=== PATIENT | female | born 1975 | race African-American/Black ===

== ENCOUNTER 2016-10-10 10:53 | Emergency (ER) | payer OTHER ==
[2016-10-10 10:58] VITALS: BMI 44.1
--- NOTE | 2016-10-10 11:26 | PDOC ---
History of Present Illness - General History Source: Patient Exam Limitations: No Limitations - History of Present Illness Initial Comments: 10/10/16 11:30 The patient is a 41-year-old woman, accompanied by spouse, with a significant medical history of migraine headaches and gastroesophageal reflux disease and recent hysterectomy who presents to the emergency department via for further evaluation of dizziness since yesterday. No head trauma. Patient states that her symptoms started ever since she had her hysterectomy (June 2016). She states that she has been feeling fatigue, and lately she has been more weak than usual, needing to take naps, but she does not, as she cares for her 4 children at home. She states that for the past couple of days, she started to experience her typical epigastric abdominal pains, for which she attributes to her history of GERD. However, yesterday, her symptoms worsened as she reports associated symptoms of cold sweats, dry mouth, persistent nausea and dizziness "described as room spinning", which is atypical of her GERD symptoms. She also admits, she has been on Motrin for since her hysterectomy. She denies fever, diaphoresis, generalized weakness. She denies chest pain, shortness of breath, cough She denies vomiting, diarrhea, dysuria, hematuria, urinary frequency and urgency , flank pain, vaginal discharge/vaginal bleeding Allergies: Codeine. Penicillin. Past Surgical History: Hysterectomy. Knee surgery. Social History: Never smoked. No ETOH and recreational drug use. 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 [phone] <Aysha Acevedo - Last Filed: 10/10/16 15:20> <Eliud Mckinley - Last Filed: 10/10/16 16:31> - General Chief Complaint: Pain Stated Complaint: WEAKNESS, DIZZINESS, ABD PAIN Time Seen by Provider: 10/10/16 11:02 Past History <Aysha Acevedo - Last Filed: 10/10/16 15:20> - Past Medical History Anemia: No Asthma: No Cancer: No Cardiac Disorders: No CVA: No COPD: No CHF: No Dementia: No Diabetes: No GI Disorders: Yes (EPIGASTRIC PAIN) Disorders: No HTN: No Hypercholesterolemia: No Liver Disease: No Seizures: No Thyroid Disease: No - Surgical History Abdominal Surgery: Yes Appendectomy: No Cardiac Surgery: No Cholecystectomy: No Lung Surgery: No Neurologic Surgery: No Orthopedic Surgery: No - Reproductive History (#): 6 Para: 3 Cervical CA: No Dysfunctional Uterine Bleeding: No Ectopic : No Endometrial CA: No Polycystic Ovaries: No Therapeutic (s) & number: Yes (1) Tubal Ligation: No Spontaneous : 1 - Psycho/Social/Smoking Cessation Hx Anxiety: No Suicidal Ideation: No Smoking History: Never smoked Have you smoked in the past 12 months: No Information on smoking cessation initiated: No Hx Alcohol Use: No Drug/Substance Use Hx: No Substance Use Type: None <Eliud Mckinley - Last Filed: 10/10/16 16:31> - Past Medical History Allergies/Adverse Reactions: Allergies Allergy/AdvReac Type Severity Reaction Status Date / Time codeine Allergy Verified 10/10/16 10:56 Penicillins Allergy Verified 10/10/16 10:56 Home Medications: Ambulatory Orders NK [No Known Home Medication] 10/10/16 Review of Systems - Review of Systems Constitutional: Yes: Chills. No: Fever HEENTM: Yes: Other (dry mouth). No: Recent change in vision, Double Vision Respiratory: No: Shortness of Breath Cardiac (ROS): Yes: Lightheadedness. No: Chest Pain, Edema, Syncope ABD/GI: Yes: Diarrhea, Nausea. No: Vomiting : No: Burning, Dysuria, Frequency Integumentary: No: Rash Neurological: Yes: Headache. No: Weakness All Other Systems: Reviewed and Negative <Eliud Mckinley - Last Filed: 10/10/16 16:31> *Physical Exam - Vital Signs Last Vital Signs Temp Pulse Resp BP Pulse Ox 97.5 F L 77 18 149/92 100 10/10/16 10:56 10/10/16 10:56 10/10/16 10:56 10/10/16 10:56 10/10/16 10:56 - Physical Exam Comments: 10/10/16 11:42 GENERAL: The patient is awake, alert, and fully oriented, in no acute distress. HEAD: Normal with no signs of trauma. EYES: Pupils equal, round and reactive to light, extraocular movements intact, sclera anicteric, conjunctiva clear with no pallor. ENT: Ears normal, nares patent, oropharynx clear without exudates. Dry mucous membranes. NECK: Normal range of motion, supple without lymphadenopathy, JVD, or masses. LUNGS: Breath sounds equal, clear to auscultation bilaterally. No wheeze/ crackles. HEART: Regular rate and rhythm, normal S1 and S2 without murmur or rub. ABDOMEN: Soft/there is some tenderness with occasional guarding in the epigastric and right upper quadrant without rebound/nondistended. BS wnl. No palpable masses. No hepatosplenomegaly. EXTREMITIES: Normal range of motion, no edema. No clubbing or cyanosis. No cords, erythema, or tenderness. NEUROLOGICAL: Cranial nerves II through XII grossly intact. Normal speech. PSYCH: Normal mood, normal affect. SKIN: Warm, Dry, normal turgor, no rashes or lesions noted. <Aysha Acevedo - Last Filed: 10/10/16 15:20> - Vital Signs Last Vital Signs Temp Pulse Resp BP Pulse Ox 97.5 F L 77 18 149/92 100 10/10/16 10:56 10/10/16 10:56 10/10/16 10:56 10/10/16 10:56 10/10/16 10:56 <Eliud Mckinley - Last Filed: 10/10/16 16:31> Heart Score/ECG Review #1 ECG reviewed & interpreted by me at: 12:50 General ECG Interpretation: Sinus Rhythm, Normal Rate (73), Normal Intervals, No acute ischemic changes (1/2 mm MAINOR I/AVL c/w repolarization, no reciprocal changes) <Eliud Mckinley - Last Filed: 10/10/16 16:31> ED Treatment Course - LABORATORY CBC & Chemistry Diagram: 10/10/16 11:45 10/10/16 11:45 - RADIOLOGY Radiograph Interpretation: 10/10/16 13:12 EXAM: US/ABDOMEN US -LIMITED IMPRESSION: Right upper abdomen ultrasound. The liver is enlarged measuring 20.4 cm in sagittal length with a slightly dense echotexture. A focal low- attenuation density is noted in the left hepatic lobe measuring 1.5 cm seen on the transverse images only there is also a small hypoechoic density in the right hepatic lobe measuring 1.5 cm in maximum dimension. Gallbladder is adequately distended without intraluminal stones or thickening of its wall. No intra or extrahepatic bile duct dilatation is seen. The right kidney measures 9.8 cm sagittal length and appears unremarkable. Visualized portion of the pancreas appears unremarkable Visualized portion of the proximal abdominal aorta and inferior vena cava appear unremarkable. Normal flow in the main portal vein EXAM: US/TRANSVAGINAL ULTRASOUND US IMPRESSION: Status post hysterectomy. History of adenomyosis. Abdominal pain. Pelvis ultrasound, transvaginal. Patient is status post cervix sparing hysterectomy. Both ovaries were not visualized. No adnexal mass or fluid collection is seen. EXAM: RAD/CHEST PA LAT IMPRESSION: Comparison study February 07, 2011. Unremarkable contour of the cardiomediastinal silhouette. No evidence of pulmonary infiltrates, atelectasis. No pleural effusion or pneumothorax is seen. No evidence of bulky hilar adenopathy. Intact visualized osseous structures. <Aysha Acevedo - Last Filed: 10/10/16 15:20> - LABORATORY CBC & Chemistry Diagram: 10/10/16 11:45 10/10/16 11:45 <Eliud Mckinley - Last Filed: 10/10/16 16:31> Medical Decision Making - Medical Decision Making 10/10/16 12:21 A portion of this note was documented by scribe services under my direction. I have reviewed the details of the note, within reason, and agree with the documentation with the following case summary and management plan written by me. 41-year-old female with no significant past medical history other than hysterectomy in June for fibroids now presents for generalized malaise/ fatigue with nausea, intermittent abdominal pain. Chills but no fever, dry mouth but no polyuria, no cough or chest pain. Vitals as noted and within normal limits. Dry mucosa, right-sided abdominal discomfort to palpation as noted 41-year-old female with very general complaints of generalized fatigue and nausea and intermittent abdominal pain. ? new onset diabetes, ? anemia, r/o intra-abdominal process (gastritis, biliary colic, post-op collection?). labs, ua ekg, cxr RUQ and pelvic sono ivf, anti-emetic reassess 10/10/16 13:23 Labs are within normal limits, including hemoglobin, white count, creatinine, glucose, TSH. Right upper quadrant ultrasound shows hepatomegaly but no biliary disease. Transvaginal ultrasound pending. EKG is nonischemic. 10/10/16 16:26 Ultrasound normal. CTAP performed to r/o colitis, and is also normal. Ultimate diagnosis still unclear, but emergent workup within normal limits. Pt feels reassured, can f/u with her PMD for further evaluation. Understands return criteria. <Eliud Mckinlye - Last Filed: 10/10/16 16:31> *DC/Admit/Observation/Transfer - Attestations Scribe Attestion: 10/10/16 11:43 Documentation prepared by Aysha Acevedo, acting as medical claims assistant for Eliud Mckinley MD. <Aysha Acevedo - Last Filed: 10/10/16 15:20> <Eliud Mckinley - Last Filed: 10/10/16 16:31> Diagnosis at time of Disposition: Malaise and fatigue, Generalized abdominal pain - Discharge Dispostion Disposition: HOME Condition at time of disposition: Stable - Referrals Referrals: Miesha Bailey MD [Primary Care Provider] - - Patient Instructions Printed Discharge Instructions: DI for Fatigue Additional Instructions: Acticity as tolerated. Stay hydrated. Blood tests, a urine test, ultrasounds and a CT of the abdomen/pelvis performed today shows no acute abnormalities. Further testing (inflammatory markers, ? Lyme testing) may be necessary with your primary doctor to further evaluate the cause of your symptoms. Continue your medications as previously prescribed by your physician. Multivitamins are available over the counter. You must follow up with your primary physician as soon as possible regarding today's emergency department visit. Return to the emergency department for any new or concerning symptoms, especially loss of consciousness, fever/chills, chest pain or shortness of breath, persistent or severe abdominal pain.
[2016-10-10] MEDS ORDERED: SODIUM CHLORIDE 1,000 ML IV ONE (11:39)
[2016-10-10] MEDS ORDERED: FAMOTIDINE 20 MG/50 ML IVPB 50 ML IVPB ONE ×2 (11:39→11:54)
[2016-10-10] MEDS ORDERED: METOCLOPRAMIDE HCL INJECTION 10 MG/2 ML VIAL IVPB ONE (11:39)
[2016-10-10] MEDS ORDERED: METOCLOPRAMIDE HCL INJECTION 10 MG/2 ML VIAL ONE (11:54)
[2016-10-10 12:00] LABS: URINE APPEARANCE CLEAR; URINE BILIRUBIN NEGATIVE (NEGATIVE); URINE BLOOD NEGATIVE (NEGATIVE); URINE COLOR STRAW; URINE GLUCOSE (UA) NEGATIVE (NEGATIVE); URINE KETONE NEGATIVE (NEGATIVE); URINE LEUK ESTERASE NEGATIVE (NEGATIVE); URINE NITRITE NEGATIVE (NEGATIVE); URINE PROTEIN NEGATIVE (NEGATIVE); URINE UROBILINOGEN NEGATIVE E.U./dl (0.2-1.0)
[2016-10-10 12:04] LABS: EOSINOPHIL 3.6 % (0-4.5); MCH 26.9 pg (25.7-33.7); MCHC 32.5 g/dl (32.0-36.0); MEAN CELL VOLUME 82.7 fl (80-96); MEAN PLT VOLUME 9.4 fl (7.5-11.1); NEUTROPHILS 45.3 % (42.8-82.8); PLATELET COUNT 221 K/MM3 (134-434)
[2016-10-10 12:34] LABS: ALBUMIN 3.7 g/dl (3.4-5.0); ALK PHOS 70 U/L (45-117); ANION GAP 8 (8-16); CALCIUM 8.7 mg/dL (8.5-10.1); CO2 30 mmol/L (21-32); CREATININE 0.6 mg/dL (0.55-1.02); GLUCOSE,RANDOM 93 mg/dL (74-106); SGOT/AST 22 U/L (15-37); SGPT/ALT 29 U/L (12-78); TOT PROT 7.1 g/dl (6.4-8.2)
[2016-10-10 13:39] VITALS: PULSE 68
--- NOTE | 2016-10-10 16:13 | EKG ---
Test Reason : Blood Pressure : / mmHG Vent. Rate : 073 BPM Atrial Rate : 073 BPM P-R Int : 150 ms QRS Dur : 084 ms QT Int : 396 ms P-R-T Axes : 036 019 003 degrees QTc Int : 436 ms NORMAL SINUS RHYTHM WITH SINUS ARRHYTHMIA NORMAL ECG WHEN COMPARED WITH ECG OF 07-FEB-2011 13:23, NO SIGNIFICANT CHANGE WAS FOUND Confirmed by JUN SOLORZANO MD ([id number]) on 10/10/2016 4:12:49 PM Referred By: Confirmed By:JUN SOLORZANO MD
[2016-10-10 17:12] VITALS: BP 119/75; TEMP 98
== END 2016-10-10 16:46 | disposition home or self-care (01) ==
LOC: JER 10:53
PROC: 3E033GC Introduction of Other Therapeutic Substance into Peripheral Vein, Percutaneous Approach (ICD-10-PCS; principal; 2016-10-10)
DX: R10.84 Generalized abdominal pain (principal); R53.81 Other malaise
CPT/HCPCS: 36415; 71020-TC; 74177-TC; 76705-TC; 76830-TC; 80053; 81003; 83690; 84443; 85025; 93005; 93010; 96365; 96375; 99284-25

== ENCOUNTER 2018-01-26 18:42 | Emergency (ER) | payer OTHER ==
--- NOTE | 2018-01-26 18:47 | PDOC ---
Rapid Medical Evaluation Time Seen by Provider: 01/26/18 18:43 Medical Evaluation: Allergies Allergy/AdvReac Type Severity Reaction Status Date / Time codeine Allergy Verified 10/10/16 10:56 Penicillins Allergy Verified 10/10/16 10:56 I have performed a brief in-person evaluation of this patient. The patient presents with a chief complaint of: right buttock pain radiating into right leg x few days, left side since yesterday. Patient has had hip xrays which showed arthritis Pertinent physical exam findings: pain with ambulation. pain with palpation of b /l buttocks I have ordered the following: nothing; patient had a hysterectomy The patient will proceed to the ED for further evaluation. Discharge Disposition - Diagnosis Sciatic pain - Referrals - Patient Instructions - Post Discharge Activity
[2018-01-26 18:51] VITALS: BP 140/100; PULSE 85; TEMP 98.5; BMI 47.2
[2018-01-26] MEDS ORDERED: RANITIDINE HCL 150 MG TABLET (FP) PO ONE (19:10)
[2018-01-26] MEDS ORDERED: KETOROLAC TROMETHAMINE 60 MG/2 ML VIAL IM ONE (19:10)
[2018-01-26] MEDS ORDERED: KETOROLAC TROMETHAMINE 60 MG/2 ML VIAL ONE (19:11)
[2018-01-26] MEDS ORDERED: RANITIDINE HCL 150 MG TABLET (FP) ONE (19:11)
--- NOTE | 2018-01-26 19:14 | PDOC ---
History of Present Illness - General Chief Complaint: Pain Stated Complaint: PAIN Time Seen by Provider: 01/26/18 18:43 - History of Present Illness Initial Comments: 42-year-old female without any pre-existing medical comorbidities presents for evaluation of lumbar spine pain with bilateral leg radiculopathy. Symptoms of been going on for about 3 months now recently exacerbated without any precipitating traumatic event over the last 3 days. She describes her pain as achy exacerbated with activity relieved with rest and with radiation down the posterior lateral aspect of both legs. No loss of bowel or bladder function. 01/26/18 19:11 Past History - Past Medical History Allergies/Adverse Reactions: Allergies Allergy/AdvReac Type Severity Reaction Status Date / Time codeine Allergy Verified 01/26/18 18:43 Penicillins Allergy Verified 01/26/18 18:43 Home Medications: Ambulatory Orders Cyclobenzaprine HCl [Flexeril 10 mg] 10 mg PO HS PRN #10 tablet 01/26/18 Methylprednisolone [Medrol Dose Bjorn] 4 mg PO ASDIR #21 tablet 01/26/18 Anemia: No Asthma: No Cancer: No Cardiac Disorders: No CVA: No COPD: No CHF: No DVT: No Dementia: No Diabetes: No GI Disorders: Yes (gerd) Disorders: No HTN: No Hypercholesterolemia: No Liver Disease: No Seizures: No Thyroid Disease: No - Surgical History Abdominal Surgery: Yes Appendectomy: No Cardiac Surgery: No Cholecystectomy: No Lung Surgery: No Neurologic Surgery: No Orthopedic Surgery: No - Reproductive History (#): 6 Para: 3 Cervical CA: No Dysfunctional Uterine Bleeding: No Ectopic : No Endometrial CA: No Polycystic Ovaries: No Therapeutic (s) & number: Yes (1) Tubal Ligation: No Spontaneous : 1 - Suicide/Smoking/Psychosocial Hx Smoking History: Never smoked Have you smoked in the past 12 months: No Information on smoking cessation initiated: No Hx Alcohol Use: No Drug/Substance Use Hx: No Substance Use Type: None Review of Systems - Review of Systems Musculoskeletal: Yes: Back Pain All Other Systems: Reviewed and Negative *Physical Exam - Vital Signs Last Vital Signs Temp Pulse Resp BP Pulse Ox 98.5 F 85 18 140/100 100 01/26/18 18:44 01/26/18 18:44 01/26/18 18:44 01/26/18 18:44 01/26/18 18:44 - Physical Exam Comments: Lumbar spine shows decreased range of motion she has 5 out of 5 strength in bilateral lower extremities. Including EHL plantar flexion dorsiflexion knee extension and hip flexion. She has no clonus. She has positive straight leg raise test bilaterally producing contralateral radicular symptoms. No gross sensorimotor deficits. She neurovascular intact. 01/26/18 19:12 Medical Decision Making - Medical Decision Making Lumbar radiculopathy. I'll treated with a Medrol Dosepak and a muscle relaxer. While in the ER tonight I will give her Toradol and an H2 katie. Have her follow up with spine surgery. 01/26/18 19:13 *DC/Admit/Observation/Transfer Diagnosis at time of Disposition: Sciatic pain - Discharge Dispostion Disposition: HOME Condition at time of disposition: Stable Decision to Admit order: No - Prescriptions Prescriptions: Cyclobenzaprine HCl [Flexeril 10 mg] 10 mg PO HS PRN #10 tablet PRN Reason: Muscle Spasms Methylprednisolone [Medrol Dose Bjorn] 4 mg PO ASDIR #21 tablet - Referrals Referrals: Kobe Farrell MD [Staff Physician] - - Patient Instructions Additional Instructions: Follow-up with spine surgery as advised. Return to the emergency room if symptoms worsen or go unresolved prior to follow-up. Given you a steroid pack please do not take any anti-inflammatories on top of that such as Advil Motrin or Aleve. I've also given U a muscle relaxer which will make tired. It's one pill before bedtime. - Post Discharge Activity
== END 2018-01-26 19:19 | disposition home or self-care (01) ==
LOC: JERFT 18:42
PROC: 3E0233Z Introduction of Anti-inflammatory into Muscle, Percutaneous Approach (ICD-10-PCS; principal; 2018-01-26)
DX: M54.41 Lumbago with sciatica, right side (principal); M54.42 Lumbago with sciatica, left side
CPT/HCPCS: 96372; 99281-25

== ENCOUNTER 2018-07-18 16:25 | Emergency (ER) | payer OTHER ==
--- NOTE | 2018-07-18 16:36 | PDOC ---
Rapid Medical Evaluation Time Seen by Provider: 07/18/18 16:34 Medical Evaluation: Allergies Allergy/AdvReac Type Severity Reaction Status Date / Time codeine Allergy Verified 01/26/18 18:43 Penicillins Allergy Verified 01/26/18 18:43 07/18/18 16:34 I have performed a brief in-person evaluation of this patient. The patient presents with a chief complaint of: nasal congestion 3-4 days Pertinent physical exam findings: Lungs CTAB. OP clear. I have ordered the following: nothing The patient will proceed to the ED for further evaluation. Discharge Disposition - Diagnosis Nasal congestion - Referrals - Patient Instructions - Post Discharge Activity
[2018-07-18 16:41] VITALS: BP 134/59; PULSE 89; TEMP 97.9; BMI 45.8
--- NOTE | 2018-07-18 16:57 | PDOC ---
History of Present Illness - General Chief Complaint: Cold Symptoms Stated Complaint: COLD SYMPTOMS Time Seen by Provider: 07/18/18 16:34 - History of Present Illness Initial Comments: 07/18/18 16:55 43-year-old female without comorbidities presents for evaluation of sinus congestion and nasal congestion 2 and half weeks. She states she was given a Z- Bjorn at the beginning of her sickness 2 and half weeks ago which helped for a little bit her symptoms never really resolved and they have now increased over the last 3 days. She does have subjective fever at home chills night sweats. Past History - Past Medical History Allergies/Adverse Reactions: Allergies Allergy/AdvReac Type Severity Reaction Status Date / Time codeine Allergy Verified 07/18/18 16:38 Penicillins Allergy Verified 07/18/18 16:38 Home Medications: Ambulatory Orders Budesonide [Rhinocort Allergy] 1 spray NS ONCE #1 spray.pump 07/18/18 Doxycycline Hyclate 100 mg PO BID #20 tablet 07/18/18 Anemia: No Asthma: No Cancer: No Cardiac Disorders: No CVA: No COPD: No CHF: No DVT: No Dementia: No Diabetes: No GI Disorders: Yes (gerd) Disorders: No HTN: No Hypercholesterolemia: No Liver Disease: No Seizures: No Thyroid Disease: No - Surgical History Abdominal Surgery: Yes Appendectomy: No Cardiac Surgery: No Cholecystectomy: No Lung Surgery: No Neurologic Surgery: No Orthopedic Surgery: No - Reproductive History (#): 6 Para: 3 Cervical CA: No Dysfunctional Uterine Bleeding: No Ectopic : No Endometrial CA: No Polycystic Ovaries: No Therapeutic (s) & number: Yes (1) Tubal Ligation: No Spontaneous : 1 - Suicide/Smoking/Psychosocial Hx Smoking History: Never smoked Have you smoked in the past 12 months: No Information on smoking cessation initiated: No Hx Alcohol Use: No Drug/Substance Use Hx: No Substance Use Type: None Review of Systems - Review of Systems Constitutional: Yes: Chills, Fever, Malaise, Night Sweats HEENTM: Yes: Nose Congestion *Physical Exam - Vital Signs Last Vital Signs Temp Pulse Resp BP Pulse Ox 97.9 F 89 19 134/59 L 100 07/18/18 16:35 07/18/18 16:35 07/18/18 16:35 07/18/18 16:35 07/18/18 16:35 - Physical Exam Comments: 07/18/18 16:55 HEAD: NC/AT EYES: Conjuntiva clear Ears: Canals and TM's normal NOSE: Injected turbinates with clear discharge THROAT: Moist mucous membrances, oral pharanx clear, uvula midline NECK: Supple without adenopathy CARDIAC: S1 S2 LUNGS: CTA Full and Equal breath sounds ABDOMEN: Soft NT ND MS: Full ROM in all joints without edema NEUROLOGIC: No gross sensory or motor deficits, NVID SKIN: Normal color and temperature no lesions or rashes Medical Decision Making - Medical Decision Making 07/18/18 16:56 Doxycycline for this penicillin ALLERGIC female she states she had a hysterectomy in the past no chance of *DC/Admit/Observation/Transfer Diagnosis at time of Disposition: Nasal congestion, Sinusitis - Discharge Dispostion Disposition: HOME Condition at time of disposition: Stable Decision to Admit order: No - Prescriptions Prescriptions: Doxycycline Hyclate 100 mg PO BID #20 tablet - Referrals Referrals: ON STAFF,NOT [Primary Care Provider] - - Patient Instructions Printed Discharge Instructions: Sinusitis, DI for Sinusitis Additional Instructions: Please take the antibiotics as directed. Return to the emergency room should symptoms worsen or go unresolved and follow-up with your primary care physician one to 2 days for further evaluation and treatment options. Given you an antibiotic as well as a nasal spray which should help with your symptoms. Tylenol and Motrin for pain and fever as directed - Post Discharge Activity
== END 2018-07-18 16:59 | disposition home or self-care (01) ==
LOC: JERFT 16:25
DX: J01.90 Acute sinusitis, unspecified (principal)
CPT/HCPCS: 99281-25

== ENCOUNTER 2022-10-13 08:26 | Day surgery (SDC) | payer OTHER ==
[2022-09-27 14:30] VITALS: BMI 42.1
[2022-10-13] MEDS ORDERED: BUPIVACAINE HCL 50 ML ONE (09:32)
[2022-10-13] MEDS ORDERED: BUPIVACAINE HCL/PF 2.5 MG/ML - 30 ML VIAL IJ ONE (09:32)
[2022-10-13] MEDS ORDERED: PROPOFOL 20 ML ONE (10:08)
[2022-10-13] MEDS ORDERED: ceFAZolin SODIUM 1 GM VIAL ONE (10:20)
[2022-10-13] MEDS ORDERED: DEXAMETHASONE SOD PHOSPHATE 4 MG/1 ML VIAL ONE (10:28)
[2022-10-13] MEDS ORDERED: ONDANSETRON 4 MG/2 ML VIAL ONE ×2 (10:28→11:39)
[2022-10-13] MEDS ORDERED: KETOROLAC TROMETHAMINE 30 MG/1 ML VIAL ONE (11:03)
[2022-10-13] MEDS ORDERED: FENTANYL CITRATE/PF 50 MCG/ML VIAL ONE ×3 (11:37→11:59)
[2022-10-13] MEDS ORDERED: ACETAMINOPHEN INJECTION 100 ML IVPB ONE (11:39)
[2022-10-13] MEDS ORDERED: oxyCODONE HCL 5 MG TABLET PO PRN (11:59)
[2022-10-13] MEDS ORDERED: ACETAMINOPHEN 1000 MG/100 ML BAG IVPB PRN (11:59)
[2022-10-13] MEDS ORDERED: ONDANSETRON 4 MG/2 ML VIAL IVPUSH PRN (11:59)
[2022-10-13] MEDS ORDERED: LACTATED RINGERS SOLUTION 1,000 ML IV SCH (12:00)
[2022-10-13 12:39] VITALS: RESP 18
[2022-10-13] MEDS ORDERED: oxyCODONE HCL 5 MG TABLET ONE (12:41)
[2022-10-13] MEDS ORDERED: oxyCODONE HCL 5 MG TABLET PO ONE (13:41)
[2022-10-13 13:58] VITALS: PULSE 74; TEMP 98
[2022-10-13 15:16] VITALS: BP 112/60
== END 2022-10-13 16:20 | disposition home or self-care (01) ==
LOC: FASU 08:26
PROVIDERS: ATTEND Orthopaedic Surgery Sports Medicine
PROC: 0SBC4ZZ Excision of Right Knee Joint, Percutaneous Endoscopic Approach (ICD-10-PCS; principal; 2022-10-13 10:36)
PROC: 0SBC4ZZ Excision of Right Knee Joint, Percutaneous Endoscopic Approach (ICD-10-PCS; 2022-10-13 10:36)
DX: S83.251A Bucket-handle tear of lateral meniscus, current injury, right knee, initial encounter (principal); X58.XXXA Exposure to other specified factors, initial encounter; Y93.9 Activity, unspecified; Y92.9 Unspecified place or not applicable
CPT/HCPCS: 94760